=== PATIENT | female | born 1965 | race African-American/Black ===

== ENCOUNTER 2017-09-10 19:32 | Emergency (ER) | payer OTHER ==
[2017-09-10 19:51] VITALS: BP 120/68; PULSE 81; TEMP 98.7; BMI 37.8
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
== END 2017-09-10 21:55 | disposition home or self-care (01) ==
LOC: JERFT 19:32
DX: S46.812A Strain of other muscles, fascia and tendons at shoulder and upper arm level, left arm, initial encounter (principal); S80.02XA Contusion of left knee, initial encounter; M54.5 Low back pain; V78.4XXA Person boarding or alighting from bus injured in noncollision transport accident, initial encounter; Y92.414 Local residential or business street as the place of occurrence of the external cause; Y93.89 Activity, other specified; Y99.8 Other external cause status
CPT/HCPCS: 72100-TC-FY; 73030-TC-LT-FY; 73562-TC-LT-FY; 99281-25